=== PATIENT | female | born 1965 | race Hispanic/Latino ===

== ENCOUNTER → 2020-01-17 | Day surgery (SDC) | payer OTHER ==
[~2020-01-17] MED LIST: BUPIVACAINE HCL 0.5% INJ 30 ML VIAL INJ ONE; CEFAZOLIN SOD 1 GM/NS 50ML 100 ML IV ONE; DEXAMETHASONE SOD PHOS INJ 4 MG/ML VIAL ONE; FENTANYL CITRATE/PF 100MCG/2 ML INJ ONE; KETOROLAC TROMETHAMINE 30 MG/ML VIAL ONE; LEVOTHYROXINE50 MCG PO; LIDOCAINE HCL 2% LOCAL INJ 5 ML SDV VIAL INJ ONE; MIDAZOLAM HCL 2 MG/2 ML VIAL ONE; NEOSTIGMINE 1 MG/ML 10ML VIAL ONE; ONDANSETRON HCL INJ 2MG/ML 2ML 2 MG/ML VIAL ONE; PRAVASTATIN SOD40 MG PO; PROPOFOL IV EMULSION 10 MG/ML 20 ML VIAL ONE; SEVOFLURANE INHAL SOLN 250 ML PEN BTL ONE
[2020-01-17 09:59] VITALS: BP 131/68
--- NOTE | 2020-01-17 14:38 | Operative Report ---
DATE OF PROCEDURE: 01/17/2020 SURGEON: Nola Mauricio DPM POWER DIGGER OPERATOR: None. PREOPERATIVE DIAGNOSIS: Hallux rigidus, left foot. POSTOPERATIVE DIAGNOSES: 1. Hallux rigidus, left foot. 2. Extensor tendinitis, left foot. PROCEDURES: 1. First MPJ fusion, left foot. 2. Extensor tendon repair with entubulation, left foot with human allograft for augmentation. COMPLICATIONS: None. CONDITION: Stable. MATERIALS: 1. BIO4 5 mL, lot #[id number], expiration September 13, 2021. 2. AlloWrap DS with lot #[id number], expiration date May 09, 2020, a 2 x 4 for the extensor tendon repair. PROCEDURE IN DETAIL: Under mild sedation, the patient was brought to the operating room, and placed on the operating table in the supine position. Following IV sedation, anesthesia were obtained with a general anesthetic. At this point, the left foot was scrubbed, prepped, and draped in the usual aseptic manner and it was then lowered to the table after the pneumatic ankle tourniquet was inflated to 350 mmHg. Attention was directed to the dorsal aspect of the left foot, where a linear incision was made overlying the 1st metatarsophalangeal joint. Once the extensor tendon was visualized, the extensor tendon was to be flat and yellow with synovitic tissue surrounding the whole tendon sheath. All this was removed with #15 blade. Attention was then directed to the capsule, where a linear incision was made overlying the 1st MPJ. The incision was deepened down to the level of the capsule. The capsule was then reflected off the 1st of the joint. There was noted to be medial dorsal and lateral osteophytes. Utilizing an oscillating saw, all this was removed. The joint was then prepared for arthrodesis down to clean viable bleeding bone. A 5 mL BIO4 was used in order to augment the fusion. After the fusion site was prepared, a K-wire was then used to fenestrate the joint. The area was then flushed with copious amount of normal sterile saline solution. BIO4 was inserted. The joint was positioned in an anatomical position. Clinically with the use of intraoperative fluoroscopy, a lag screw 3 x 3 mm was then used at the 1st MPJ. Then, an Hardee MTP plate was then used with 3.0 x 14 x 12 x 14 locking screws and 3.0 x 14 nonlocking screw. There was noted to be adequate alignment clinically with the use of intraoperative fluoroscopy. The area was then flushed with copious amount of normal sterile saline solution. Attention was then directed to the capsule, where the capsule was then closed with 3-0 Vicryl. Then, attention was directed to the tendon, where after all nonviable tissue was removed, the tendon was then entubulated and then the repair was augmented with AlloWrap 2 x 4. The area was then flushed with copious amount of normal sterile saline solution. It was closed with 3-0 Vicryl and 4-0 nylon. A 10 mL of 0.5 Marcaine plain were injected. Clean dressing was applied consisting of Adaptic, Coban, 4x4s, Kerlix, and an Yaw bandage. The tourniquet was deflated. There was noted to be hyperemic response to all the digits. The patient tolerated the procedure and anesthesia well without complications, was transported to the recovery room with vital signs stable and vascular status intact to both feet. The patient will be discharged home when she meets criteria. She was given instructions to be nonweightbearing, to ice and elevate the foot while at rest, follow up with me in the office and to call the office if any questions, concerns, or new problems arise. OLGA Mcclain/ARABELLA /[id number]
== END | disposition home or self-care (01) ==
LOC: OR 05:15
PROVIDERS: ATTEND Podiatrist Foot & Ankle Surgery
DX: M20.21 Hallux rigidus, right foot (principal); M77.52 Other enthesopathy of left foot and ankle; M25.775 Osteophyte, left foot; E03.9 Hypothyroidism, unspecified; R00.1 Bradycardia, unspecified; Z01.810 Encounter for preprocedural cardiovascular examination
CPT/HCPCS: 28208; 28750; 93005; C1713; J0690; J1100; J1885; J2001; J2250; J2405; J2704; J2710; J3010; Q4150

== ENCOUNTER → 2020-08-03 | Day surgery (SDC) | payer OTHER ==
[2020-07-31 16:12] LABS: BASOPHILS % 0.6 % (0.0-1.0); EOSINOPHILS # (AUTO) 0.3 (0.0-0.4); EOSINOPHILS % 5.1 % (0.0-6.0); HEMATOCRIT 42.4 % (34.2-44.1); HEMOGLOBIN 13.4 g/dL (12.0-16.0); LYMPHOCYTES # (AUTO) 2.2 (1.0-3.2); LYMPHOCYTES % 33.9 % (18.0-39.1); MEAN CORPUSCULAR HEMOGLOBIN 27.9 pg (28-32); MEAN CORPUSCULAR HGB CONC 31.6 g/dL (31-35); MEAN CORPUSCULAR VOLUME 88.1 fL (81-99); MONOCYTES # (AUTO) 0.4 (0.2-0.8); MONOCYTES % 6.6 % (4.4-11.3); NEUTROPHILS # (AUTO) 3.5 (2.1-6.9); NEUTROPHILS % 53.5 % (38.7-80.0); PLATELET COUNT 266 x10e3/uL (140-360); RED BLOOD COUNT 4.81 x10e6/uL (3.6-5.1); RED CELL DISTRIBUTION WIDTH 13.1 % (11.7-14.4)
[2020-07-31 16:34] LABS: ANION GAP 15.9 mmol/L (8-16); BLOOD UREA NITROGEN 17 mg/dL (7-26); BUN/CREATININE RATIO 23 (6-25); CALCIUM 9.2 mg/dL (8.4-10.2); CARBON DIOXIDE 25 mmol/L (22-29); CHLORIDE 104 mmol/L (98-107); CREATININE, SERUM 0.75 mg/dL (0.57-1.11); EST GLOMERULAR FILTRATION RATE > 60 ML/MIN (60-); GLUCOSE 94 mg/dL (74-118); POTASSIUM 3.9 mmol/L (3.5-5.1); SODIUM 141 mmol/L (136-145)
[~2020-08-03] MED LIST changes: +ACETAMINOPHEN 1000 MG/100 ML 100 ML IV ONE; +ACETAMINOPHEN 1000 MG/100 ML IV ONE; -BUPIVACAINE HCL 0.5% INJ 30 ML VIAL INJ ONE; -CEFAZOLIN SOD 1 GM/NS 50ML 100 ML IV ONE; +EUTHYROX100 MCG PO; +LIDOCAINE 1% W/EPINEPHRINE 20 ML VIAL ONE; +LIDOCAINE HCL 1% LOCAL INJ 20 ML VIAL ONE; -NEOSTIGMINE 1 MG/ML 10ML VIAL ONE
--- NOTE | 2020-08-03 13:35 | Operative Report ---
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 OPERATION PERFORMED: Right partial mastectomy with preoperative ultrasound-guided needle localization and specimen mammography. ANESTHESIA: General. COMPLICATIONS: None. ESTIMATED BLOOD LOSS: Minimal. DESCRIPTION OF PROCEDURE: With the patient lying bed in the supine position under good general anesthesia, the right breast was prepped with Betadine solution and draped in the usual manner. The area overlying the mass was then infiltrated with lidocaine solution. An incision was made. It was carried down through the subcutaneous tissue. The breast was mostly fatty replaced. The wire was then identified in the subcutaneous tissue and followed to the area in question, which was then totally completely encircled and removed without any difficulty. The specimen was then sent for specimen mammography, which confirmed that the area in question was contained within the specimen. The whole area was thoroughly irrigated. Perfect hemostasis was ascertained. The breast tissue was then reapproximated with interrupted sutures of 2-0 chromic and the skin was closed with subcuticular 5-0 Vicryl. Benzoin, Steri-Strips, and dressings were applied. The sponge, lap, and needle count was correct. The patient tolerated the procedure well and returned to the recovery room in stable condition. MD HUDSON HubbardR/MODL /[id number]
[2020-08-03 14:15] VITALS: BP 118/63
--- NOTE | 2020-08-03 15:58 | Diagnostic Imaging Report ---
#[id number] - [id number] SPECIMEN RIGHT BREAST: 08/03/2020 Correlation is made to exams dated: 08/03/2020 localization - [facility] and 07/09/2020 ultrasound biopsy - [facility]. A surgical specimen was imaged for the previous biopsy site located in the right breast at 3 o'clock middle depth. IMPRESSION: SPECIMEN The imaged specimen includes a biopsy clip. Waiting for pathology results. A final report will be issued when these become available. Follow-up with ACR/ACS guidelines. CASSIDY stroud/duglas:08/03/2020 12:43:07 Environment Artist: Juanita CLIFTON(Bhumi)(Leo), [facility]
--- NOTE | 2020-08-03 15:58 | Diagnostic Imaging Report ---
#[id number] - [id number] MAMMOGRAPHY GUIDED WIRE LOCALIZATION RIGHT BREAST: 08/03/2020 Correlation is made to exams dated: 07/09/2020 ultrasound biopsy, 06/20/2020 ultrasound, 05/30/2020 mammogram and 06/20/2020 mammogram - [facility]. A wire localization using mammography guidance was performed for the marker clip located in the right breast at 3 o'clock middle depth. The skin was prepped in the usual manner. Local anesthetic was administered to the access site. The localization was approached from the medial aspect. A J-hook wire was inserted into the targeted area under mammography guidance. IMPRESSION: WIRE LOCALIZATION Wire localization for the marker clip in the right breast at 3 o'clock middle depth was successful. Follow-up with ACR/ACS guidelines. CASSIDY stroud/duglas:08/03/2020 09:48:46 Corporate Communications Specialist: Juanita CLIFTON(R)(M), [facility] [id number]
== END | disposition home or self-care (01) ==
LOC: OR 07:03
PROVIDERS: ATTEND Surgery
DX: D24.1 Benign neoplasm of right breast (principal); E78.5 Hyperlipidemia, unspecified; E03.9 Hypothyroidism, unspecified; Z01.810 Encounter for preprocedural cardiovascular examination; Z01.812 Encounter for preprocedural laboratory examination; Z11.59 Encounter for screening for other viral diseases
CPT/HCPCS: 19281; 19301; 36415; 76098; 80048; 85025; 88307; 93005; J0131; J1100; J1885; J2001 ×2; J2405; J2704; U0002; J2250; J3010